=== PATIENT | female | born 1945 | race Caucasian/White ===

== ENCOUNTER → 2023-06-11 06:43 | Outpatient (REF) | payer MEDICARE, OTHER, SELFPAY | LOC: HWRAD 06:43 | PROVIDERS: ATTENDING PHYSICIAN Family Medicine | DX: R10.32 Left lower quadrant pain (principal) | CPT/HCPCS: 76830; 76856 ==

== ENCOUNTER → 2023-09-30 08:55 | Day surgery (SDC) | payer MEDICARE, OTHER, SELFPAY ==
[2023-09-30 10:23] LABS: % Basophils 0.6 % (0-2); % Eosinophils 1.9 % (0-6); % Immature Granulocytes 0.3 % (0-0.5); % Lymphocytes 28.5 % (20.5-51.1); % Monocytes 10.1 % (1.7-9.3); % Neutrophils 58.6 % (42.2-75.2); Absolute Basophils 0.1 10^3/uL (0-0.2); Absolute Eosinophils 0.2 10^3/uL (0-0.7); Absolute Lymphocytes 2.3 10^3/uL (1.2-3.4); Absolute Monocytes 0.8 10^3/uL (0.1-0.6); Absolute Neutrophils 4.6 10^3/uL (1.4-6.5); Hematocrit 43.8 % (37.0-47.0); Hemoglobin 14.3 g/dL (12.0-16.0); Mean Corp Hgb Conc. 32.6 g/dL (33.0-37.0); Mean Corpuscular Hgb 28.5 pg (27.0-31.0); Mean Corpuscular Volume 87.4 fL (81.0-99.0); Mean Platelet Volume 11.1 fL (7.4-10.4); Nucleated Red Blood Cells % 0 %; Platelet Count 224 10^3/uL (130-400); Red Blood Cell Count 5.01 10^6/uL (4.20-5.40); Red Cell Dist. Width 13.9 % (11.5-14.5); White Blood Cell Count 7.9 10^3/uL (4.8-10.8)
[2023-09-30 11:01] LABS: Blood Urea Nitrogen 17 mg/dl (7-17); Calcium 9.7 mg/dl (8.4-10.2); Carbon Dioxide 29 mmol/L (22-30); Chloride 102 mmol/L (98-107); Glucose 94 mg/dl (70-99); Potassium 4.5 mmol/L (3.5-5.1); Sodium 140 mmol/L (135-145); eGFR > 60.00
== END ==
LOC: SDSPAT 08:55
PROVIDERS: ATTENDING PHYSICIAN Obstetrics & Gynecology; FAMILY PHYSICIAN Family Medicine
DX: Z01.810 Encounter for preprocedural cardiovascular examination (principal); Z01.812 Encounter for preprocedural laboratory examination; R93.89 Abnormal findings on diagnostic imaging of other specified body structures
CPT/HCPCS: 93005; 85025; 80048; 86850; 86900; 86901

== ENCOUNTER 2023-10-06 06:27 | Day surgery (SDC) | payer MEDICARE, OTHER, SELFPAY ==
[2023-09-30 09:15] VITALS: BMI 29.9
[2023-10-06] VITALS (8 sets, daily range): BP systolic 118–155; BP diastolic 53–84; BMI 29.9
[2023-10-06] MEDS: NORMOSOL-R 1000 IV (08:57)
[2023-10-06] MEDS: TYLENOL 1000 MG PO (08:57)
[2023-10-06] MEDS: CELEBREX 200 MG PO (08:57)
--- NOTE | 2023-10-06 11:53 | SUR.OPER ---
PATIENT IN LITHOTOMY, LEGS SECURED IN PADDED STIRRUPS, ARMS EXTENDED AND SECURED ON PADDED ARM BOARDS
--- NOTE | 2023-10-07 19:43 | W.IMMPOSTOP ---
Surgical Immed Post Op Note
-
Note is late entry from procedure yesterday. Due to need for my attention to some emergent issues with obstetric patient yesterday shortly after this surgery, I had not written this note. When I went to do so yesterday, there was [employer] down time
and I could not access chart. Writing note today for this reason.
Surgeon: Delia Tapia, DO
Pre-op Diagnosis: Thickened endometrial lining on ultrasound
Post-op Diagnosis: same, endometrial polyp
Procedure Performed: Hysteroscopy D&C polypectomy
Anesthesia Type: general LMA Dr. Roberson
Specimen / Cultures: 1. endocervical curettings 2. endometrial curettings and polyp
Estimated Blood Loss: 5 ml
Complications: none
Operative Findings: Uterus with small endometrial polyp. Uterus sounded to 6 cm. Bilateral tubal ostia seen.
Sponge counts correct times 2.
Stable to recovery.
== END 2023-10-06 13:41 | disposition home or self-care (01) ==
LOC: SDS 06:27
PROVIDERS: ATTENDING PHYSICIAN Obstetrics & Gynecology
DX: C54.1 Malignant neoplasm of endometrium (principal); N84.0 Polyp of corpus uteri; R93.89 Abnormal findings on diagnostic imaging of other specified body structures
CPT/HCPCS: 58558; 88305; 88341; 88342; 88360

== ENCOUNTER → 2023-10-26 16:32 | Outpatient (REF) | payer MEDICARE, OTHER, SELFPAY ==
[2023-10-26 17:20] LABS: Urine Albumin Negative (Neg - Trace); Urine Bilirubin Negative (Negative); Urine Character Clear (Clear); Urine Color Yellow; Urine Glucose Negative (Negative); Urine Ketone Negative (Negative); Urine Leukocyte Trace (Negative); Urine Nitrite Negative (Negative); Urine Occult Blood Negative (Negative); Urine Specific Gravity 1.015 (<1.030); Urine Urobilinogen Negative (Neg - 1+)
[2023-10-26 17:30] LABS: ALT (SGPT) 22 U/L (0-35); AST (SGOT) 24 U/L (14-36); Albumin 4.5 g/dl (3.5-5.0); Alkaline Phosphatase 67 U/L (38-126); Blood Urea Nitrogen 13 mg/dl (7-17); Calcium 9.7 mg/dl (8.4-10.2); Carbon Dioxide 29 mmol/L (22-30); Chloride 105 mmol/L (98-107); Glucose 96 mg/dl (70-99); Potassium 4.4 mmol/L (3.5-5.1); Sodium 141 mmol/L (135-145); Total Bilirubin 0.4 mg/dl (0.2-1.3); Total Protein 7.4 g/dl (6.3-8.2); eGFR > 60.00
[2023-10-26 18:38] LABS: % Basophils 0.8 % (0-2); % Eosinophils 1.9 % (0-6); % Immature Granulocytes 1.1 % (0-0.5); % Lymphocytes 37.1 % (20.5-51.1); % Monocytes 8.1 % (1.7-9.3); Absolute Basophils 0.1 10^3/uL (0-0.2); Absolute Eosinophils 0.1 10^3/uL (0-0.7); Absolute Immature Granulocytes 0.1 10^3/uL (0-0.05); Absolute Lymphocytes 2.8 10^3/uL (1.2-3.4); Absolute Monocytes 0.6 10^3/uL (0.1-0.6); Absolute Neutrophils 3.8 10^3/uL (1.4-6.5); Hematocrit 43.8 % (37.0-47.0); Hemoglobin 14.4 g/dL (12.0-16.0); Mean Corp Hgb Conc. 32.9 g/dL (33.0-37.0); Mean Corpuscular Hgb 28.7 pg (27.0-31.0); Mean Corpuscular Volume 87.4 fL (81.0-99.0); Mean Platelet Volume 11.8 fL (7.4-10.4); Nucleated Red Blood Cells % 0 %; Platelet Count 222 10^3/uL (130-400); Red Blood Cell Count 5.01 10^6/uL (4.20-5.40); Red Cell Dist. Width 13.5 % (11.5-14.5); White Blood Cell Count 7.5 10^3/uL (4.8-10.8)
[2023-10-26 19:19] LABS: Urine Bacteria Few (Negative)
[2023-10-26 20:11] LABS: CA 125 12.5 U/mL (0-35)
== END ==
LOC: REG 16:32
PROVIDERS: ATTENDING PHYSICIAN Obstetrics & Gynecology Gynecologic Oncology; FAMILY PHYSICIAN Family Medicine
DX: C54.1 Malignant neoplasm of endometrium (principal)
CPT/HCPCS: 36415; 80053; 81003; 81015; 85025; 86304

== ENCOUNTER → 2023-10-26 18:26 | Outpatient (REF) | payer MEDICARE, OTHER, SELFPAY | LOC: MRI 3T 18:26 | PROVIDERS: ATTENDING PHYSICIAN Ophthalmology Cornea and External Diseases Specialist; FAMILY PHYSICIAN Family Medicine | DX: H53.2 Diplopia (principal) | CPT/HCPCS: 70543; 70553; A9575 ==

== ENCOUNTER → 2023-10-29 11:48 | Outpatient (REF) | payer MEDICARE, OTHER, SELFPAY | LOC: HWRAD 11:48 | PROVIDERS: ATTENDING PHYSICIAN Obstetrics & Gynecology Gynecologic Oncology; FAMILY PHYSICIAN Family Medicine | DX: C54.1 Malignant neoplasm of endometrium (principal) | CPT/HCPCS: 71260; 74177; Q9967 ==

== ENCOUNTER 2023-11-03 06:12 | Day surgery (SDC) | payer MEDICARE, OTHER, SELFPAY ==
[2023-10-30 10:14] VITALS: BMI 29.3
[2023-11-03] VITALS (15 sets, daily range): BP systolic 111–139; BP diastolic 57–81; BMI 29.3
[2023-11-03] MEDS: NEURONTIN 300 MG PO (06:47)
[2023-11-03] MEDS: NORMOSOL-R 1000 IV (06:47)
[2023-11-03] MEDS: CELEBREX 200 MG PO (06:47)
[2023-11-03] MEDS: HEPARIN 5000 UNITS SC (06:47)
[2023-11-03] MEDS: TYLENOL 1000 MG PO (06:47)
[2023-11-03 07:20] LABS: APTT 28.9 Sec (23.4-35.0)
--- NOTE | 2023-11-03 11:25 | OR.RPT ---
Operative Report
Operative Report
Date of procedure: November 03, 2023
Preoperative diagnosis endometrioid adenocarcinoma of uterus
Postoperative diagnosis same
Anesthesia: General endotracheal intubation and tap block
Procedure:
Injection of cervix with ICG dye, bilateral for mapping and identification of sentinel lymph nodes [id number]
Robotic assisted laparoscopic pelvic sentinel lymphadenectomy [id number]
Laparoscopic enterolysis for intra-abdominal adhesions
Additional procedures: Robotic assisted total laparoscopic hysterectomy, bilateral salpingo-oophorectomy by Dr. Delia Tapia
EBL: 50 cc
complications: none
Procedure in detail: The patient was brought back to the operating room and placed in supine position, general anesthesia was administered and she was intubated without any difficulty. Arms were wrapped in foam and placed along the patient's sides.
She was placed in lithotomy position using yellowfin stirrups, anesthesia team performed a tap block. She was prepped on the abdomen perineum and vagina. Corrigan catheter was inserted under sterile conditions into the bladder. Speculum examination
was performed, anterior lip of the cervix was grasped with single-tooth tenaculum, the cervix canal was dilated, cervix was injected with ICG dye at 5 and 10:00 at 5 and 10 mm stations. For a total of 4 cc. Uterine manipulator director of bands type with
a 3.5 cm CATRINA ring was placed in the uterine cavity and vaginal cuff insufflator was filled with 50 cc. Attention was turned abdominally.
started by placing a Veress needle just below left subcostal margin, insufflation with CO2 gas up to pressure of 15 mmHg was performed. 5 mm laparoscopic approach was used under direct visualization to gain entry into the left upper
quadrant. 8 mm X Xi robotic port was placed in the left lateral abdomen. There was significant adhesions along the midline where she had had prior open cholecystectomy. I came in to assist with placement of the remainder of the port. I was able
to look in the left lower quadrant and place an 8 mm X Xi robotic ports here. Under direct visualization some of the adhesions were taken down from the anterior abdominal wall. Next I was able to place another 8 mm X Xi robotic port in right upper
quadrant. The remainder of the adhesions were taken down using the vessel sealer from the anterior abdominal wall and there was no evidence of injury to any loops of bowel. Finally the midline 8 mm robotic port was inserted. Patient was placed in
28 degree Trendelenburg. Upper abdomen had been inspected there was no evidence of disease along the right and left paracolic gutter, right and left subdiaphragmatic spaces liver and spleen appear to be within normal limits. In the pelvis there
was no evidence of extrauterine disease and uterus cervix bilateral tubes and ovaries are normal. Washings were collected in the pelvis and submitted for cytology. Robotic system was docked. Right and left round ligament were dissected open
anterior and posterior leaves of the broad ligament were dissected open the course of the ureter was identified in the retroperitoneum and a window was created between IP ligaments and ureter. Both IP ligaments were sealed 3 times and divided we
then used the near infrared system to identify lymph nodes that had fluorescein dye, along the mid external iliac there was bilaterally lymph nodes that were considered sentinel, these lymph nodes were removed using gentle traction and monopolar
cautery. Good hemostasis was present right and left external iliac sentinel lymph nodes were handed to pathology. Next exploration of the retroperitoneum revealed additional lymph node at the level of obturator fossa bilaterally. These lymph
nodes were also removed the located anterior to the obturator nerve. These were also carefully removed and good hemostasis was present and they were handed over to pathology as right and left obturator sentinel lymph nodes. Bladder flap was
sharply developed and advanced below the cervicovaginal junction. I handed the case over to gynecology team for completion of hysterectomy
The uterine arteries were skeletonized uterine arteries followed by cardinal ligaments followed by uterosacral ligaments were sealed and divided circumferential incision was made over the CATRINA ring and the specimen including uterus cervix bilateral
tubes and ovaries were removed through the vagina and submitted to pathology. They closed the vaginal cuff with 0 Vicryl suture ligature at both apices and used a V-Loc suture to close the vaginal cuff. I inspected the vagina and there was no
evidence of injury or bleeding. We inspected the abdomen and there was no evidence of bleeding and good hemostasis was present. Robotic ports were removed and pneumoperitoneum was released. There was no indication to close any fascial incisions.
All incisions were closed at the level of the skin with 4-0 Monocryl. Dermabond was placed on all incisions. Patient was awakened extubated and returned back to recovery room stable awake and stable condition. Counts of laps instruments and
needle was correct x 2. I was present and scrubbed for entire procedure as dictated above.
--- NOTE | 2023-11-03 11:45 | W.IMMPOSTOP ---
Surgical Immed Post Op Note
-
Primary Surgeon: Delia Tapia DO and Aime Lewis MD
Heating Element Winder: VENKAT De
Pre-op Diagnosis: endometrial adenocarcinoma
Post-op Diagnosis: same
Procedure Performed: Robotic dx laparoscopy, laparoscopic lysis adhesions, pelvic washings, TLH BSO
ICG injection of cervix, sentinel lymph node dissection/biopsies, lysys adhesions (Dr. Lewis).
Anesthesia Type: general ET Dr. Peña
Specimen / Cultures: 1. pelvic washings 2. external iliac nodes left 3. left internal iliac lymph nodes 4. right external iliac lymph nodes 5. Right internal iliac lymph nodes 6. uterus, cervix, bilateral tubes and ovaries.
Estimated Blood Loss: 50ml
Corrigan 800ml clear yellow urine- removed at end of case
Complications: none
Operative Findings: Normal sized uterus, normal appearing bilateral fallopian tubes and ovaries. Normal appearing liver, bilateral paracolic gutters, subdiaphragmatic spaces.
Stable to recovery.
Counts correct times 2.
[2023-11-03] MEDS: DILAUDID 0.25 MG IV ×3 (12:53→13:19)
[2023-11-03] MEDS: TYLENOL 650 MG PO (14:48)
== END 2023-11-03 17:10 | disposition home or self-care (01) ==
LOC: SDS 06:12
PROVIDERS: ATTENDING PHYSICIAN Obstetrics & Gynecology; FAMILY PHYSICIAN Family Medicine
DX: C54.1 Malignant neoplasm of endometrium (principal); K66.0 Peritoneal adhesions (postprocedural) (postinfection)
CPT/HCPCS: 58571; 38900; 38571; 88307; 88309; 36415; 85610; 85730; 86850; 86900; 86901; 88112; 88342; 93005; C1776

== ENCOUNTER → 2024-01-13 11:04 | Outpatient (REF) | payer MEDICARE, OTHER, SELFPAY | LOC: HWRAD 11:04 | PROVIDERS: ATTENDING PHYSICIAN Family Medicine | DX: M79.672 Pain in left foot (principal) | CPT/HCPCS: 73630 ==

== ENCOUNTER → 2024-01-22 06:57 | Outpatient (REF) | payer MEDICARE, OTHER, SELFPAY | LOC: HWRAD 06:57 | PROVIDERS: ATTENDING PHYSICIAN Family Medicine | DX: N20.0 Calculus of kidney (principal) | CPT/HCPCS: 76775 ==

== ENCOUNTER → 2024-02-15 11:17 | Outpatient (REF) | payer MEDICARE, OTHER, SELFPAY | LOC: MRI 3T 11:17 | PROVIDERS: ATTENDING PHYSICIAN Specialist; FAMILY PHYSICIAN Family Medicine | DX: I67.1 Cerebral aneurysm, nonruptured (principal) | CPT/HCPCS: 70544 ==

== ENCOUNTER → 2024-05-03 12:45 | Outpatient (REF) | payer MEDICARE, OTHER, SELFPAY | LOC: HWRCS 12:45 | PROVIDERS: ATTENDING PHYSICIAN Internal Medicine Cardiovascular Disease; FAMILY PHYSICIAN Family Medicine | DX: R06.09 Other forms of dyspnea (principal) | CPT/HCPCS: 93306 ==

== ENCOUNTER 2024-08-22 06:21 | Day surgery (SDC) | payer MEDICARE, OTHER, SELFPAY | END 2024-08-22 12:51 | disposition home or self-care (01) | LOC: GI 06:21 | PROVIDERS: ATTENDING PHYSICIAN Internal Medicine Gastroenterology | DX: Z12.11 Encounter for screening for malignant neoplasm of colon (principal); D12.2 Benign neoplasm of ascending colon; D12.3 Benign neoplasm of transverse colon; D12.4 Benign neoplasm of descending colon; K57.30 Diverticulosis of large intestine without perforation or abscess without bleeding; Q43.8 Other specified congenital malformations of intestine; Z86.0101 Personal history of adenomatous and serrated colon polyps | CPT/HCPCS: 45385; 88305 ==

== ENCOUNTER → 2024-09-27 12:35 | Outpatient (REF) | payer MEDICARE, OTHER, SELFPAY | LOC: HWWDC 12:35 | PROVIDERS: ATTENDING PHYSICIAN Obstetrics & Gynecology; FAMILY PHYSICIAN Family Medicine | DX: Z12.31 Encounter for screening mammogram for malignant neoplasm of breast (principal) | CPT/HCPCS: 77063; 77067 ==

== ENCOUNTER → 2024-09-29 13:37 | Outpatient (REF) | payer MEDICARE, OTHER, SELFPAY | LOC: HWRAD 13:37 | PROVIDERS: ATTENDING PHYSICIAN Obstetrics & Gynecology; FAMILY PHYSICIAN Family Medicine | DX: Z78.0 Asymptomatic menopausal state (principal) | CPT/HCPCS: 77080 ==

== ENCOUNTER → 2024-10-19 10:06 | Outpatient (REF) | payer MEDICARE, OTHER, SELFPAY | LOC: EMG 10:06 | PROVIDERS: ATTENDING PHYSICIAN Family Medicine | DX: R20.0 Anesthesia of skin (principal); G56.02 Carpal tunnel syndrome, left upper limb | CPT/HCPCS: 95886; 95909 ==

== ENCOUNTER → 2024-10-19 11:53 | Outpatient (REF) | payer MEDICARE, OTHER, SELFPAY | LOC: RAD 11:53 | PROVIDERS: ATTENDING PHYSICIAN Family Medicine | DX: M54.2 Cervicalgia (principal); R20.0 Anesthesia of skin | CPT/HCPCS: 72050 ==

== ENCOUNTER → 2024-12-15 10:39 | Outpatient (REF) | payer MEDICARE, OTHER, SELFPAY | LOC: HWCARD 10:39 | PROVIDERS: ATTENDING PHYSICIAN Physical Medicine & Rehabilitation; FAMILY PHYSICIAN Family Medicine | DX: Z01.818 Encounter for other preprocedural examination (principal) | CPT/HCPCS: 93005 ==

== ENCOUNTER 2025-01-16 07:32 | Outpatient (RCR) | payer MEDICARE, OTHER, SELFPAY | END 2025-01-16 23:59 | disposition home or self-care (01) | LOC: RPT 07:32 | PROVIDERS: ATTENDING PHYSICIAN Specialist; FAMILY PHYSICIAN Family Medicine | DX: R26.81 Unsteadiness on feet (principal); Z73.6 Limitation of activities due to disability; R26.2 Difficulty in walking, not elsewhere classified; M62.81 Muscle weakness (generalized); I69.398 Other sequelae of cerebral infarction; R26.89 Other abnormalities of gait and mobility; Z91.81 History of falling | CPT/HCPCS: 97110; 97112; 97162 ==

== ENCOUNTER 2025-02-06 12:06 | Outpatient (RCR) | payer MEDICARE, OTHER, SELFPAY | END 2025-02-06 14:17 | disposition home or self-care (01) | LOC: RPT 12:06 | PROVIDERS: ATTENDING PHYSICIAN Specialist; FAMILY PHYSICIAN Family Medicine | DX: R26.81 Unsteadiness on feet (principal); Z73.6 Limitation of activities due to disability; R26.2 Difficulty in walking, not elsewhere classified; M62.81 Muscle weakness (generalized); I69.398 Other sequelae of cerebral infarction; R26.89 Other abnormalities of gait and mobility; Z91.81 History of falling | CPT/HCPCS: 97110 ==

== ENCOUNTER → 2025-03-01 20:23 | Outpatient (REF) | payer MEDICARE, OTHER, SELFPAY | LOC: MRI 3T 20:23 | PROVIDERS: ATTENDING PHYSICIAN Specialist; FAMILY PHYSICIAN Family Medicine | DX: R26.81 Unsteadiness on feet (principal) | CPT/HCPCS: 70553; A9575 ==